=== PATIENT | female | born 1990 | race Caucasian/White ===

== ENCOUNTER 2021-07-16 17:23 | Inpatient (IN) | payer MEDICAID, OTHER ==
[~2021-07-16] VITALS: Ht 170.2 cm; Wt 71.8 kg
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
[2021-07-16 21:10] LABS: BASOPHILS # (AUTO) 0.1 X10'3 (0-0.2); BASOPHILS % (AUTO) 0.7 % (0-1); EOSINOPHILS # (AUTO) 0.4 X10'3 (0-0.9); EOSINOPHILS % (AUTO) 4.5 % (0-6); HEMATOCRIT 41.8 % (35.0-45.0); HEMOGLOBIN 14.2 g/dl (12.0-16.0); LYMPHOCYTES # (AUTO) 2.1 X10'3 (1.1-4.8); LYMPHOCYTES % (AUTO) 24.6 % (21-51); MEAN CORPUSCULAR HEMOGLOBIN 30.6 PG (27.0-31.0); MEAN CORPUSCULAR HGB CONC 33.9 g/dL (33.0-36.5); MEAN CORPUSCULAR VOLUME 90.3 FL (78-98); MONOCYTES # (AUTO) 0.9 X10'3 (0-0.9); MONOCYTES % (AUTO) 10.1 % (2-12); NEUTROPHILS # (AUTO) 5.2 X10'3 (1.8-7.7); NEUTROPHILS % (AUTO) 60.1 % (42-75); PLATELET COUNT 358 X10'3 (140-440); RED BLOOD COUNT 4.63 X10'6 (4.20-5.60); RED CELL DISTRIBUTION WIDTH 12.6 % (11.5-14.5); WHITE BLOOD COUNT 8.6 X10'3 (4.5-11.0)
[2021-07-16 21:22] LABS: HCG SERUM QL NEGATIVE
[2021-07-16 21:26] LABS: APTT 27 SECONDS (22-32)
[2021-07-16 21:27] LABS: ALANINE AMINOTRANSFERASE 43 U/L (12-78); ALKALINE PHOSPHATASE 64 IU/L (46-116); ANION GAP 12 (8-16); ASPARTATE AMINO TRANSFERASE 37 U/L (10-37); BILIRUBIN,TOTAL 0.7 MG/DL (0.1-1.0); BLOOD UREA NITROGEN 11 MG/DL (7-18); BUN/CREATININE RATIO 11.8 (6.6-38.0); CHLORIDE 100 MMOL/L (99-107); CREATININE 0.93 MG/DL (0.40-0.90); GLUCOSE 82 MG/DL (70-104); POTASSIUM 3.3 MMOL/L (3.5-5.1); SODIUM 138 MMOL/L (135-145); TOTAL CARBON DIOXIDE 26.2 MMOL/L (24-32); TOTAL PROTEIN 7.9 G/DL (6.4-8.2); eGFR 71 ML/MIN
--- NOTE | 2021-07-16 21:32 | NUR ---
Call out to Dr Loya who will try to contact a [facility] nurse. Two calls out to [facility] RN so far with no response. Dr Loya will come in to do exam if he's unable to contact any one
[2021-07-16 21:42] LABS: BETA HCG,QUANTITATIVE < 1.0 mIU/ml; CKMB RELATIVE INDEX 0.8 RATIO (0-2.5); CREATINE KINASE 166 U/L (26-192); LIPASE < 50 U/L (73-393)
[2021-07-16] MEDS ORDERED: iohexol 300mg/ml 100ml inj. ONE (21:44)
[2021-07-16 21:45] LABS: ETHANOL < 0.010 GM/DL (0.0-0.010)
[2021-07-16 21:50] LABS: CLARITY,URINE CLEAR (Clear); COLOR,URINE YELLOW (Yellow); GLUCOSE, URINE NEGATIVE (Neg); KETONES,URINE 15 mg/dl (Neg); LEUKOCYTE ESTERASE ,URINE NEGATIVE (Neg); NITRITES, URINE NEGATIVE (Neg); OCCULT BLOOD,URINE TRACE-INTACT (Neg); PROTEIN,URINE TRACE mg/dl (Neg); UROBILINOGEN,URINE 0.2 E.U/dL (0.2-1.0)
[2021-07-16 21:54] LABS: UA COLLECTION TYPE NON-SPECIFIED
[2021-07-16 21:56] LABS: BACTERIA,URINE FEW /HPF (Neg); MUCUS STRANDS FEW /LPF (Neg); RBC,URINE 0-2 /HPF (0-2); SQUAMOUS EPITHELIAL CELL,UR FEW /LPF (FEW)
[2021-07-16 22:03] LABS: URINE AMPHETAMINE SCREEN POSITIVE (Neg); URINE BARBITUATE SCREEN NEGATIVE (Neg); URINE BENZODIAZEPINES SCREEN NEGATIVE (Neg); URINE CANNABINOID SCREEN NEGATIVE (Neg); URINE COCAINE SCREEN POSITIVE (Neg); URINE METHADONE SCREEN NEGATIVE (Neg); URINE OPIATE SCREEN NEGATIVE (Neg); URINE PHENCYCLIDINE SCREEN NEGATIVE (Neg)
--- NOTE | 2021-07-16 23:23 | NUR ---
PT IN SANE ROOM WITH SANE NURSE
[2021-07-17] MEDS ORDERED: CefTRIAXone 500MG IM Kit w/LIDOcaine (for pt below or = to 150kg) IM ONE (02:55)
[2021-07-17] MEDS ORDERED: LEVONORGESTREL 1.5MG tablet 1.5 MG TABLET PO ONE (02:55)
[2021-07-17] MEDS: metroNIDAZOLE 500mg tablet PO SCH ×2 (03:16→10:38)
[2021-07-17] MEDS: DOXYCYCLINE 100MG CAPSULE PO SCH ×2 (03:17→10:39)
[2021-07-17] MEDS: diatr meglu/diatrizoate 30ml oral sol.-(3 dose) bottle PO SCH ×3 (03:20→10:08)
[2021-07-17] MEDS ORDERED: NO HOME MEDS (04:07)
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
[2021-07-17] MEDS ORDERED: acetaminophen 325mg tablet PO PRN (04:45)
[2021-07-17] MEDS ORDERED: magnesium hydroxide 30ml (MOM) UD suspension PO PRN (04:45)
[2021-07-17] MEDS ORDERED: mag hydrox/Alum hydrox/simeth 30ml oral suspension PO PRN (04:45)
[2021-07-17] MEDS ORDERED: normal saline 1000ml 1,000 ML IV SCH (04:45)
[2021-07-17] MEDS ORDERED: ondansetron/PF 4mg/2ml inj IV PRN (04:45)
[2021-07-17] MEDS ORDERED: morphine 2 MG/ML inj. syringe IV PRN ×2 (04:45)
--- NOTE | 2021-07-17 05:12 | NUR ---
Patient in room . I have received report from FAYE Salomon and had the opportunity to ask questions and assume patient care. VSS
--- NOTE | 2021-07-17 05:20 | NUR ---
Pt arrived on [place] [id number] VSS.
[2021-07-17 05:37] VITALS: BP 119/69
--- NOTE | 2021-07-17 06:26 | NUR ---
Problems reprioritized. Patient report given, questions answered & plan of care reviewed with FAYE Menard.
--- NOTE | 2021-07-17 07:16 | NUR ---
Patient in room [facility]. I have received report from Lola MCKINNEY and had the opportunity to ask questions and assume patient care.
[2021-07-17 07:39] VITALS: BP 118/79
[2021-07-17] MEDS ORDERED: docusate sod 100mg capsule PO SCH (08:00)
[2021-07-17] MEDS ORDERED: magnesium 2GM in 50ml NS 50 ML IV PRN (08:35)
[2021-07-17] MEDS ORDERED: potassium CL 10mEq/100ml bag 100 ML IV PRN (08:35)
[2021-07-17] MEDS ORDERED: magnesium Cl slow-release 64mg tablet PO PRN (08:35)
[2021-07-17] MEDS ORDERED: potassium Cl 20 mEq SR tablet PO PRN ×2 (08:35)
[2021-07-17] MEDS ORDERED: magnesium 4gm in 100ml NS 100 ML IV PRN (08:35)
[2021-07-17 09:29] LABS: MAGNESIUM 2.3 MG/DL (1.5-2.4); POTASSIUM 3.5 MMOL/L (3.5-5.1)
[2021-07-17 12:54] VITALS: BP 101/65
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
[2021-07-17] MEDS ORDERED: K and/or MAG REPLACEMENT MC SCH (20:00)
== END 2021-07-17 18:29 | disposition home or self-care (01) | DRG 254 ==
LOC: EEVIPCON 17:24 → EDSEX 17:24 → ER 17:24 → ENRESERV 07-17 03:38 → CANRESERV 07-17 03:38 → SUR 3N 07-17 04:48 → UNDOADMIN 07-17 05:24 → UNDODISIN 07-17 18:29
PROVIDERS: ADMIT Internal Medicine; ATTEND Internal Medicine
PROC: BW251ZZ Computerized Tomography (CT Scan) of Chest, Abdomen and Pelvis using Low Osmolar Contrast (ICD-10-PCS; principal; 2021-07-16)
DX: S36.428A Contusion of other part of small intestine, initial encounter (principal); T74.21XA Adult sexual abuse, confirmed, initial encounter; Z91.040 Latex allergy status; Y92.098 Other place in other non-institutional residence as the place of occurrence of the external cause; Y99.8 Other external cause status
CPT/HCPCS: 36415; 71260; 74176; 74177; 80053; 80305; 80320; 81001; 82550; 82553; 83690; 83735; 84132; 84443; 84484; 84702; 84703; 85025; 85610; 85730; 86885; 86900; 86901; 87081; 87491; 96372; 99285; G0378; J0696; J2270; J7030; Q9963; Q9967